=== PATIENT | male | born 1990 ===

== ENCOUNTER 2017-04-17 07:37 | Day surgery (SDC) | payer OTHER ==
[2017-04-17 08:27] VITALS: BMI 23.7
[2017-04-17] MEDS ORDERED: Propofol 10 mg/ml Inj (20 ML) ONE ×2 (09:14→09:21)
--- NOTE | 2017-04-17 09:16 | CP.SDSHP ---
Same Day Surgery H & P - History Proposed Procedure: EGD Pre-Op Diagnosis: SEE NOTES - Previous Medical/Surgical History Misc: Other Pain: 4.Moderate Pain - Allergies Allergies: Allergies No Known Allergies Allergy (Verified 04/17/17 08:26) - Physical Exam General Appearance: N Vital Signs: Vital Signs 04/17/17 08:36 Temperature 97.7 F Pulse Rate 70 Respiratory 19 Rate Blood Pressure 121/60 O2 Sat by Pulse 100 Oximetry Neuro: WNL Heart: WNL Lungs: WNL GI: Other - {Optional Preform as Required} Breast: WNL Abdomen: Other Rectal: Other Integument: WNL : WNL Ortho: WNL ENT: WNL - Impression Pt. Evaluated Today:Candidate for Anesthesia & Procedure: Yes - Date & Time Time: 09:16 Short Stay Discharge - Short Stay Discharge Admitting Diagnosis/Reason for Visit: DYPSEPSIA Disposition: HOME/ ROUTINE
[2017-04-17] MEDS ORDERED: Belladonna-Phenobarbital PO STA (09:25)
[2017-04-17 11:41] VITALS: TEMP 97.2
[2017-04-17 11:43] VITALS: PULSE 58
[2017-04-17 11:55] VITALS: BP 103/60; RESP 19; O2SAT 100
== END 2017-04-17 10:42 | disposition home or self-care (01) ==
LOC: C.ENDO 07:37
PROVIDERS: ATTEND Specialist
DX: K30 Functional dyspepsia (principal); R10.13 Epigastric pain; K29.70 Gastritis, unspecified, without bleeding
CPT/HCPCS: 43239; 82948; 88305; J2001; J2704